=== PATIENT | male | born 1945 | race Two or more races ===

== ENCOUNTER 2018-06-13 10:41 | Outpatient (CLI) | payer MEDICARE, MEDICAID ==
[~2018-06-13] VITALS: Ht 180.3 cm; Wt 49.9 kg
[2018-06-13 11:06] VITALS: BP 78/48
[2018-06-13] MEDS ORDERED: VITAMIN D250000 UNI1 ORAL (16:07)
[2018-06-13] MEDS ORDERED: TRAMADOL HCL50 MG ORAL (16:07)
[2018-06-13] MEDS ORDERED: BACTRIM DOUBLE S1 E1 ORAL (16:07)
[2018-06-13] MEDS ORDERED: CLOTRIMAZOLE TROCHE PO (16:07)
[2018-06-13] MEDS ORDERED: OPDIVO40 MG/4 ML IV (16:07)
[2018-06-13] MEDS ORDERED: MIDODRINE HCL10 MG ORAL (16:07)
[2018-06-13] MEDS ORDERED: LEVAQUIN500 MG ORAL (16:07)
[2018-06-13] MEDS ORDERED: PREVACID30 M2 ORAL (16:07)
[2018-06-13] MEDS ORDERED: MUCINEX600 MG PO (16:07)
[2018-06-13] MEDS ORDERED: ZOFRAN4 M3 ORAL (16:07)
[2018-06-13] MEDS ORDERED: ALIGN4 M1 PO (16:07)
[2018-06-13] MEDS ORDERED: PROBIOTIC250 MG PO (16:07)
[2018-06-13] MEDS ORDERED: VIBRAMYCIN100 MG ORAL (16:07)
[2018-06-13] MEDS ORDERED: MARINOL5 MG ORAL (16:07)
[2018-06-13] MEDS ORDERED: BISACODYL5 MG ORAL (16:07)
[2018-06-13] MEDS ORDERED: SUBUTEX PO (16:07)
[2018-06-13] MEDS ORDERED: PROCHLORPERAZINE5 MG ORAL (16:07)
--- NOTE | 2018-06-14 09:35 | GI Initial Consult Note ---
History of Present Illness General Date patient seen: Jun 13, 2018 Time patient seen: 10:00 Referring physician: REGAN Reason for Consultation: WEIGHT LOSS Present Illness HPI 73 year old male, with extensive history of tobacco use over 50 years, now with lung CA presents today with complaint of severe GERD and nausea. The patient has had history of extreme weight loss over 30 lbs. S/P chemotherapy completed on 05/03/17. In addition, the patient has complaint of constipation. Home Meds Reported Medications Levofloxacin* (LEVAQUIN*) 500 Mg Tablet, 500 MG ORAL DAILY, TAB 06/13/18 Doxycycline Hyclate* (VIBRAMYCIN*) 100 Mg Capsule, 100 MG ORAL EVERY 12 HOURS, # 14 CAP 0 Refills 06/13/18 Midodrine* (PROAMATINE*) 10 Mg Tablet, 10 MG ORAL QID, TAB 06/13/18 Trimethoprim/Sulfamethoxazole (Bactrim 400-80 mg Tablet) 1 Each Tablet, 2 TAB ORAL DAILY, TAB 06/13/18 [Subutex] No Conflict Check, 8 MG PO DAILY 06/13/18 Prochlorperazine Maleate* (COMPAZINE*) 5 Mg Tablet, 10 MG ORAL Q8HR, TAB 0 Refills 06/13/18 Dronabinol* (MARINOL*) 5 Mg Capsule, 5 MG ORAL BID, #15 CAP 0 Refills 06/13/18 Bisacodyl* (DULCOLAX*) 5 Mg Tablet.dr, 5 MG ORAL PRN, #10 TAB 0 Refills 06/13/18 Ergocalciferol (Vitamin D2)* (VITAMIN D*) 50,000 Unit Capsule, 59399 UNIT ORAL ONCE A WEEK, CAP 06/13/18 Tramadol Hcl* (ULTRAM*) 50 Mg Tablet, 50 MG ORAL BID PRN for For Pain, #30 TAB 0 Refills 06/13/18 Saccharomyces Boulardii (Probiotic) 250 Mg Capsule, 250 MG PO BID, CAP 06/13/18 Lansoprazole* (PREVACID*) 30 Mg Tab.rap.dr, 30 MG ORAL DAILY, TAB 06/13/18 Ondansetron* (ZOFRAN*) 4 Mg Tablet, 4 MG ORAL Q6H PRN for Nausea & Vomiting, TAB 06/13/18 Guaifenesin (Mucinex) 600 Mg Tab.er.12h, 600 MG PO PRN, TAB 06/13/18 [Clotrimazole Annmarie] No Conflict Check, 10 MG PO PRN 06/13/18 Nivolumab (Opdivo) 40 Mg/4 Ml Vial, 40 MG IV, VIAL EVERY 2 WEEKS 06/13/18 Bifidobacterium Infantis (ALIGN) 4 Mg Capsule, 4 MG PO DAILY, CAP 06/13/18 Med list reviewed/reconciled: Yes Allergies: Coded Allergies: No Known Allergies (Unverified , 06/13/18) Patient History History Provided By: Patient, Significant Other, Medical Record PMH Narrative PUD, February Rt lung CA 2016 Past Surgical History: Cholecystectomy Partial Gastrectomy Tonsillectomy Social History: Reports: smoking Review of Systems All Other Systems: negative except mentioned in HPI Physical Exam Vital Signs Date Time Temp Pulse Resp B/P (MAP) Pulse Ox O2 Delivery O2 Flow Rate FiO2 06/13/18 11:06 97.3 107 20 78/48 90 97.3 Sp02 EP Interpretation: reviewed, normal General Appearance: well appearing, no apparent distress, alert Head: normocephalic EENT: PERRL/EOMI, normal ENT inspection Neck: supple Respiratory: normal breath sounds, no respiratory distress Cardiovascular: normal rate Gastrointestinal: normal inspection, non tender, soft, normal bowel sounds, non -distended Rectal: deferred Genitourinary: deferred Musculoskeletal: normal inspection, back normal Neurologic: normal inspection, alert, oriented x3, responsive Psychiatric: normal inspection, judgement/insight normal, memory normal Skin: normal inspection, normal color, no rash, warm/dry, palpation normal, well hydrated Lymphatic: normal inspection, no adenopathy GI: Plan Problems: (1) GERD (gastroesophageal reflux disease) (2) Constipation (3) Lung cancer Plan Extensive discussion with patient regarding plan of care. plan for EGD when family agrees Rx for Linzess RTC x [address] Calixto. Thank you for this patient referral. The patient was seen and examined at bedside and all new and available data was reviewed in the patients chart. I agree with the above findings, impression and plan. (Patient seen earlier today. Signature stamp does not reflect patient encounter time.). - MD Sheri Hudson,[facility] Jun 14, 2018 09:35
== END 2018-06-14 11:15 | disposition home or self-care (01) ==
LOC: PAN 10:41
DX: K21.9 Gastro-esophageal reflux disease without esophagitis (principal); R11.0 Nausea; Z85.118 Personal history of other malignant neoplasm of bronchus and lung; K59.00 Constipation, unspecified; Z90.49 Acquired absence of other specified parts of digestive tract; F17.200 Nicotine dependence, unspecified, uncomplicated; Z87.11 Personal history of peptic ulcer disease
CPT/HCPCS: 99201